=== PATIENT | female | born 1965 | race Caucasian/White ===

== ENCOUNTER 2021-07-11 21:57 | Emergency (ER) | payer OTHER ==
[2021-07-11 22:06] VITALS: TEMP 98.6; BMI 22.6
[2021-07-11] MEDS ORDERED: SODIUM CHLORIDE 0.9% 500 ML INFUS.BAG IV ONE (22:56)
[2021-07-11] MEDS ORDERED: KETOROLAC TROMETHAMINE 15 MG/ML VIAL IVPUSH ONE (22:56)
[2021-07-11 23:46] LABS: EOS % 2.6 % (0-4.5); LYMPH % 34.3 % (8-40); MCHC 34.3 g/dl (32.0-36.0); MEAN CELL VOLUME 87.4 fl (80-96); MEAN PLT VOLUME 7.7 fl (7.5-11.1); MONO % 9.8 % (3.8-10.2); NEUT % 52.3 % (42.8-82.8); PLATELET COUNT 311 10^3/uL (134-434); RBC 4.34 M/mm3 (3.60-5.2); RDW 13.2 % (11.6-15.6); WHITE BLOOD COUNT 7.1 K/mm3 (4.0-10.0)
[2021-07-11 23:55] LABS: PROTHROMBIN TIME (PATIENT) 12.1 SEC (9.7-13.0)
[2021-07-11 23:57] LABS: ACTIVATED PTT 29.5 SECONDS (25.2-36.5)
[2021-07-12] MEDS ORDERED: ACETAMINOPHEN 1000 MG/100 ML VIAL (NON FORMULARY) IVPB ONE
[2021-07-12] MEDS ORDERED: morphine CARPU-JECT 2 MG/1 ML DISP.SYRIN IVPUSH ONE
[2021-07-12 00:07] LABS: BLOOD UREA NITROGEN 12.6 mg/dL (7-18); CALCIUM 8.5 mg/dL (8.5-10.1)
[2021-07-12 00:09] LABS: ALBUMIN 3.5 g/dl (3.4-5.0)
[2021-07-12 00:11] LABS: CREATININE 0.8 mg/dL (0.55-1.3)
[2021-07-12 00:12] LABS: TOT PROT 7.1 g/dl (6.4-8.2)
[2021-07-12 01:01] LABS: BILIRUBIN,TOTAL 0.3 mg/dL (0.2-1)
[2021-07-12 01:17] LABS: URINE APPEARANCE Clear; URINE BILIRUBIN Negative (NEGATIVE); URINE COLOR Yellow; URINE GLUCOSE (UA) Negative (NEGATIVE); URINE KETONE Negative (NEGATIVE); URINE LEUK ESTERASE Negative (NEGATIVE); URINE NITRITE Negative (NEGATIVE); URINE PROTEIN Negative (NEGATIVE); URINE UROBILINOGEN 0.2 mg/dL (0.2-1.0)
[2021-07-12] MEDS ORDERED: METHOCARBAMOL 500 MG TABLET PO ONE (01:23)
[2021-07-12] MEDS ORDERED: LIDOCAINE 5% TOPICAL PATCH TP ONE (01:23)
[2021-07-12] MEDS ORDERED: METHOCARBAMOL 500 MG TABLET ONE (01:48)
[2021-07-12] MEDS ORDERED: MORPHINE SULFATE 2 MG/ML VIAL ONE (01:48)
[2021-07-12] MEDS ORDERED: ACETAMINOPHEN INJECTION 100 ML IVPB ONE (01:48)
[2021-07-12] MEDS ORDERED: LIDOCAINE 5% TOPICAL PATCH ONE (01:49)
[2021-07-12 02:30] VITALS: BP 160/100; PULSE 89
[2021-07-12] MEDS ORDERED: LIDOCAINE PATCH REMOVAL MC SCH (22:00)
== END 2021-07-12 02:31 | disposition home or self-care (01) ==
LOC: JER 21:57
PROC: 3E0333Z Introduction of Anti-inflammatory into Peripheral Vein, Percutaneous Approach (ICD-10-PCS; principal; 2021-07-11)
PROC: 3E033GC Introduction of Other Therapeutic Substance into Peripheral Vein, Percutaneous Approach (ICD-10-PCS; 2021-07-11)
PROC: 3E033GC Introduction of Other Therapeutic Substance into Peripheral Vein, Percutaneous Approach (ICD-10-PCS; 2021-07-11)
DX: M54.9 Dorsalgia, unspecified (principal); R10.9 Unspecified abdominal pain
CPT/HCPCS: 36415; 74176-TC; 80053; 81003; 85025; 85610; 85730; 86850; 86900; 86901; 87086; 99284-25; C9803; U0003; U0005